=== PATIENT | male | born 1950 | race Caucasian/White ===

== ENCOUNTER → 2020-01-07 15:51 | Outpatient (BNVA) | payer MEDICARE, MEDICAID, SELFPAY | PROVIDERS: Family Provider Family Medicine; Visit Provider Nurse Practitioner Family | DX: Z12.5 Encounter for screening for malignant neoplasm of prostate (principal); N40.1 Benign prostatic hyperplasia with lower urinary tract symptoms | CPT/HCPCS: 81001; 84153 ==

== ENCOUNTER → 2022-07-24 14:30 | Outpatient (BNVA) | payer MEDICARE, MEDICAID, SELFPAY | PROVIDERS: PCP Family Medicine; Visit Provider Internal Medicine Pulmonary Disease | DX: J44.9 Chronic obstructive pulmonary disease, unspecified (principal); R06.02 Shortness of breath; R05.9 Cough, unspecified; Z87.891 Personal history of nicotine dependence; Z99.81 Dependence on supplemental oxygen | CPT/HCPCS: 99204 ==

== ENCOUNTER → 2022-08-30 15:05 | Outpatient (BNVA) | payer MEDICARE, MEDICAID, SELFPAY | PROVIDERS: PCP Family Medicine; Visit Provider Urology | DX: N40.1 Benign prostatic hyperplasia with lower urinary tract symptoms (principal); R31.0 Gross hematuria | CPT/HCPCS: 99213 ==

== ENCOUNTER 2024-01-06 16:06 | Emergency (ER) | payer MEDICARE, MEDICAID, SELFPAY ==
[2024-01-06 16:11] VITALS: BP 145/90; PULSE 88; RESP 19; TEMP 36.7; O2SAT 96; BMI 15.3
--- NOTE | 2024-01-06 16:23 | ECG_ITS ---
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 Measurements Intervals [place] Rate: 91 P: 84 AL: 140 QRS: 74 QRSD: 92 T: 96 QT: 307 QTc: 379 Interpretive Statements SINUS RHYTHM MINIMAL ST DEPRESSION [0.025+ mV ST DEPRESSION] Compared to ECG 05/09/2017 13:06:05 ST (T wave) deviation now present Electronically Signed On 01-07-2024 9:02:02 CDT by Chris Holman M.D. [email or web address]
--- NOTE | 2024-01-06 16:23 | CTR_ITS ---
PROCEDURE INFORMATION: Exam: CTA Abdominal Aorta and Bilateral Lower Extremities (Run-off) With Contrast Exam date and time: 01/06/2024 5:44 PM Age: 73 years old Clinical indication: Abnormal findings; Abnormal diagnostic imaging exam; Abnormality: US shows anuerysm TECHNIQUE: Imaging protocol: Computed tomographic angiography of the of the abdominal aorta, pelvis and bilateral lower extremities with contrast. 3D rendering (Not supervised by radiologist): MIP and/or 3D reconstructed images were created by the technologist. Radiation optimization: All CT scans at this facility use at least one of these dose optimization techniques: automated exposure control; mA and/or kV adjustment per patient size (includes targeted exams where dose is matched to clinical indication); or iterative reconstruction. Contrast material: OMNI 350; Contrast volume: 100 ml; Contrast route: INTRAVENOUS (IV); COMPARISON: US ROR abd aorta aneury scrn 01/06/2024 2:57 PM RADIATION DOSE METRICS: Total DLP (mGy-cm): 633.7 FINDINGS: Aorta: There is a 53.1 mm fusiform infrarenal abdominal aortic aneurysm which is approximately 9 cm long. There is an extensive amount of thrombus causing approximately 45% narrowing of the lumen. Celiac trunk and mesenteric arteries: Origin of the celiac, SMA and DEMARIO are patent. Renal arteries: Hemodynamic stenosis at the origin of the right renal artery. Right iliac arteries: The right common iliac artery measures 17.5 mm which is ectatic. Right femoral/popliteal arteries: The right femoropopliteal arteries demonstrate ectasia of the proximal right common femoral artery. Popliteal artery is patent. Right infrapopliteal arteries: There is three-vessel runoff to the foot. 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 Left femoral/popliteal arteries: Diseased but patent left femoropopliteal arteries. Left infrapopliteal arteries: There is two-vessel runoff via the anterior tibial and peroneal arteries. Other arteries: there is atherosclerotic disease. Lungs: Emphysematous changes are noted in the lung bases. Liver: The liver is unremarkable. Gallbladder and biliary ducts: No intrahepatic or extrahepatic biliary ductal dilatation. The gallbladder is unremarkable with no radioopaque stone. Pancreas: The pancreas is unremarkable. Spleen: There are microcysts it within the spleen. Calcified granuloma within the spleen. Adrenal glands: Adrenal glands are unremarkable. Kidneys and ureters: No hydronephrosis or nephrolithiasis. Bilateral simple renal cysts are present, as well as other subcentimeter hypodensities which are too small to characterize. Stomach and bowel: The stomach is not distended. Small and large bowel are normal in caliber without evidence of obstruction. Appendix: The appendix is not visualized. Urinary bladder: There are multiple bladder diverticula, the largest is in the left posterior bladder measuring 7 cm in transverse diameter and contains bladder stones. Recommend clinical correlation. Findings indicates bladder outlet obstruction. Reproductive: Visualized portions of the male reproductive tract are unremarkable, though routine CT is limited in this regard. The prostate is enlarged and indenting the base of the bladder. Intraperitoneal space: No free intraperitoneal air. No fluid collection. Lymph nodes: No pathologically-enlarged lymph nodes (by short axis size criteria). Bones/joints: No acute osseous abnormality. Soft tissues: Unremarkable. CT/CT angio abd aorta runof [id number] IMPRESSION: 1. 5.3 cm fusiform infrarenal abdominal aortic aneurysm with extensive amount of thrombus causing approximately 45% narrowing of the lumen. 2. 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 3. Ectatic right common iliac artery. 4. On the right, patent outflow vessels with three-vessel runoff. 5. On the left, patent outflow vessels with two-vessel runoff via the anterior tibial and peroneal arteries. 6. Multiple bladder diverticula, the largest measures 7 cm in transverse diameter and contains bladder stones, findings indicate bladder outlet obstruction marker secondary to the enlarged prostate.
--- NOTE | 2024-01-06 16:41 | ED_ITS ---
Documented by User: Marcel Brand DO 01/06/24 18:28 HPI - Abdominal Pain 2 General: Chief Complaint: Abdominal Pain Stated Complaint: Dr. marshall sent over for masoud. Cat scan--stomach Time Seen by Provider: 01/06/24 16:23 Source: patient Mode of arrival: ambulatory History of Present Illness: 73-year-old male with severe COPD O2 dep endent at 4 L/min presents emergency room at the direction of his primary care doctor. Patient has been having chronic abdominal pain but over the last month its gotten worse. He is notices significant change. He is not had any fever sweats or chills no diarrhea. He was seen today at Dr. Jacobo's office they did a ultrasound and it showed a dilated aneurysm. Radiology report in the chart shows a saccular aneurysm of the distal aorta it is 8.9 cm in length and dilated to 6 x 5.7 there is thrombus in the banda of the aneurysm luminal diameter is 3.3 x 3.4. Patient has abdominal tenderness particularly on the left side. Left common iliac artery measures 1.7 cm while the right is 1.4. He does not have any pain radiating to the groin or in the legs. MD elicited complaint: abdominal pain Onset (ago): month(s) (1) Pain Consistency: intermittent Location: Periumbilical Severity: moderate Quality: sharp Radiation: none Exacerbating factors: nothing Relieving factors: nothing Associated Symptoms: Denies anorexia, belching, bloating, change in bowel habits, change in stool character, chills, coffee ground emesis, constipation, GI cramping, diarrhea, dyspepsia, dysuria, excessive flatus, fever(s), heartburn, hematochezia, hematuria, hematemesis, fecal incontinence, loose stools, melena, nausea, poor appetite, syncope and vomiting Review of Systems 2 Const: Reports: fatigue and malaise; Denies: fever(s) or chills Card: Denies: chest pain or syncope Resp: Denies: dyspnea GI: Reports: abdominal pain; Denies: nausea, vomiting, hematemesis, coffee ground emesis, heartburn, diarrhea, constipation, bloating, GI cramping, belching, excessive flatus, fecal incontinence, change in bowel habits, change in stool character, hematochezia or melena : Denies: dysuria, urinary frequency, urinary urgency or hematuria Musc: Denies: neck pain or back pain Skin/Breast: Denies: rash PFSH ED 2 PFSH: Medical History (Updated 01/06/24 @ 20:38 by Rosana Collins MD) BPH loc w urin obs/LUTS Surgical History History of surgery on upper extremity multiple fractures H/O hand surgery fractures H/O radical excision of skin lesion left side of abdomen H/O cystoscopy crushed stones Family History Father , at age 71 Aneurysm Mother No problems noted. Social History Smoking and tobacco/nicotine status: former use of tobacco/nicotine Quit status (tobacco/nicotine): has quit using Year quit tobacco: 2021 Former quit date comment: 2ppd x 60 years, started age 12 Alcohol intake: current Alcohol intake frequency: holidays/special occasions only Marital status: / Current occupational status: retired Physical Exam 2 Const: GENERAL APPEARANCE: cooperative and comfortable NUTRITIONAL APPEARANCE: cachectic ORIENTATION/CONSCIOUSNESS: Yes awake, Yes oriented to person, Yes oriented to place and Yes oriented to time HENMT: COMMON NORMALS: normocephalic, atraumatic and hearing grossly normal bilaterally HEAD & SCALP: normocephalic and atraumatic Resp: COMMON NORMALS: normal respiratory effort, No retractions, No use of accessory muscles and clear to auscultation bilaterally AUSCULTATION: clear to auscultation bilaterally Cardio: COMMON NORMALS: regular rate, regular rhythm and No murmurs present (Cardio) RATE: regular rate RHYTHM: regular rhythm GI: COMMON NORMALS: No hepatosplenomegaly present AUSCULTATION: Yes normoactive bowel sounds PALPATION: Yes Tenderness to palpation present (GI) (Abdomen and left periumbilical area), No Guarding due to palpation present (GI) and Yes No hepatosplenomegaly present OTHER: Aorta feels enlarged easily palpable because of patient's cachexia is Extremity: COMMON NORMALS: normal to inspection, capillary refill normal, no clubbing, cyanosis or edema, no calf tenderness and no pedal edema OTHER: Femoral pulses equal bilaterally Neuro: SENSORIUM/ORIENTATION: Yes oriented to person, Yes oriented to place and Yes oriented to time Skin: COMMON NORMALS: no rashes or lesions noted GENERAL SKIN EXAM: no rashes or lesions noted Course 2 Vital Signs: Vital signs: Vital Signs Temperature 98.1 F 01/06/24 16:11 Pulse Rate 80 01/06/24 20:21 Respiratory Rate 18 01/06/24 20:21 Blood Pressure 137/84 01/06/24 20:21 Pulse Oximetry 100 01/06/24 20:21 Oxygen Delivery Me thod Oxymask 01/06/24 20:21 Oxygen Flow Rate 4 01/06/24 20:21 MDM - Abdominal Pain Medical Decision Making Care signed out to Dr. Collins at change of shift. See final notes for diagnosis and disposition. Lab Data 01/06/24 16:50 01/06/24 16:50 Labs/Radiology: Radiology Impressions Aorta w/Runoff CTA 01/06/24 16:23 IMPRESSION: 1. 5.3 cm fusiform infrarenal abdominal aortic aneurysm with extensive amount of thrombus causing approximately 45% narrowing of the lumen. 2. 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 3. Ectatic right common iliac artery. 4. On the right, patent outflow vessels with three-vessel runoff. 5. On the left, patent outflow vessels with two-vessel runoff via the anterior tibial and peroneal arteries. 6. Multiple bladder diverticula, the largest measures 7 cm in transverse diameter and contains bladder stones, findings indicate bladder outlet obstruction marker secondary to the enlarged prostate. ADDENDUM: 01/06/242014 THIS REPORT CONTAINS FINDINGS THAT MAY BE CRITICAL TO PATIENT CARE. The findings were verbally communicated via telephone conference with Dr. Collins at 8:12 PM CDT on 01/06/2024. The findings were acknowledged and understood. Laboratory Results WBC 10.02 10^3/uL (3.29-11.43) 01/06/24 16:50 RBC 4.90 10^6/uL (3.85-5.65) 01/06/24 16:50 Hgb 14.90 g/dL (11.27-16.99) 01/06/24 16:50 Hct 46.1 % (37-53) 01/06/24 16:50 MCV 94.1 fl (82-101) 01/06/24 16:50 MCH 30.4 pg (27-33) 01/06/24 16:50 MCHC 32.3 g/dL (30-55) 01/06/24 16:50 RDW 12.7 % (12.1-15.1) 01/06/24 16:50 Plt Count 232 10^3/cmm (157-399) 01/06/24 16:50 MPV 9.2 fL (7.4-10.4) 01/06/24 16:50 Neut % (Auto) 80.3 % 01/06/24 16:50 Lymph % (Auto) 12.8 % 01/06/24 16:50 [place] % (Auto) 4.6 % 01/06/24 16:50 Eos % (Auto) 1.5 % 01/06/24 16:50 Baso % (Auto) 0.5 % 01/06/24 16:50 Neut # (Auto) 8.05 10^3/uL (1.8-7.7) H 01/06/24 16:50 Lymph # (Auto) 1.3 10^3/uL (0.8-4.8) 01/06/24 16:50 [place] # (Auto) 0.5 10^3/uL (0.2-0.9) 01/06/24 16:50 Eos # (Auto) 0.2 10^3/uL (0.0-0.8) 01/06/24 16:50 Baso # (Auto) 0.1 10^3/uL (0.0-0.1) 01/06/24 16:50 Nucleated RBC % (auto) 0 % 01/06/24 16:50 Nucleated RBCs # 0.0 /100WBC 01/06/24 16:50 Sodium 143 mmol/L (136-145) 01/06/24 16:50 Potassium 4.2 mmol/L (3.5-5.1) 01/06/24 16:50 Chloride 102 mmol/L (98-107) 01/06/24 16:50 Carbon Dioxide 34 mmol/L (22-29) H 01/06/24 16:50 Anion Gap 11.2 (5-19) 01/06/24 16:50 BUN 15 mg/dL (8-23) 01/06/24 16:50 Creatinine 0.5 mg/dL (0.7-1.2) L 01/06/24 16:50 GFR Calculation Not Reportable 01/06/24 16:50 Glucose 83 mg/dL (65-115) 01/06/24 16:50 Calculated Osmolality 296 mOsm/kg (285-295) H 01/06/24 16:50 Calcium 9.4 mg/dL (8.5-10.5) 01/06/24 16:50 Total Bilirubin 0.6 mg/dL (0.15-1.2) 01/06/24 16:50 AST 15 U/L (0-40) 01/06/24 16:50 ALT 10 U/L (0-41) 01/06/24 16:50 Alkaline Phosphatase 114 U/L (40-130) 01/06/24 16:50 Total Protein 7.1 g/dL (6.6-8.7) 01/06/24 16:50 Albumin 4.1 g/dL (3.5-5.2) 01/06/24 16:50 Globulin 3.0 g/dL (1.3-4.6) 01/06/24 16:50 Urine Color Yellow (Yellow) 01/06/24 18:11 Urine Appearance Cloudy (CLEAR) A 01/06/24 18:11 Urine pH 8 (5-7) H 01/06/24 18:11 Ur Specific [place] 1.010 (1.005-1.030) 01/06/24 18:11 Urine Protein 1+ (Negative) H 01/06/24 18:11 Urine Glucose (UA) Norm (Normal) 01/06/24 18:11 Urine Ketones 1+ (Negative) H 01/06/24 18:11 Urine Blood 3+ (Negative) H 01/06/24 18:11 Urine Nitrate Negative (Negative) 01/06/24 18:11 Urine Bilirubin Neg (Negative) 01/06/24 18:11 Urine Urobilinogen Norm mg/dL (Negative) 01/06/24 18:11 Ur Leukocyte Esterase 2+ (Negative) H 01/06/24 18:11 Urine RBC 5-10 /hpf (0-2) H 01/06/24 18:11 Urine WBC Too numerous to cnt /hpf (0-5) H 01/06/24 18:11 Ur Squamous Epith Cells Rare /hpf (0-5) 01/06/24 18:11 Amorphous Sediment Not Reportable 01/06/24 18:11 Urine Bacteria 4+ /hpf (NONE) H 01/06/24 18:11 XR interpretation done by ED provider, pending radiology final review Discharge Plan Discharge Patient Disposition: Home Clinical Impression: Bladder outlet obstruction, Acute on chronic urinary retention, Bladder diverticulum, Aneurysm of left common iliac artery, Aneurysm of infrarenal abdominal aorta Urinary tract infection Qualifiers: Urinary tract infection type: acute cystitis Hematuria presence: without hematuria Qualified Code(s): N30.00 - Acute cystitis without hematuria Condition: Stable Prescriptions: New cefdinir 300 mg capsule 300 mg PO BID 10 Days Qty: 20 0RF No Action budesonide-formoterol [Symbicort] 160-4.5 mcg/actuation HFA aerosol inhaler 2 puff INHALATION BID albuterol 90 mcg/actuation aerosol INHALATION albuterol sulfate 0.63 mg/3 mL solution for nebulization 0.63 mg INHALATION QID PRN Incruse Ellipta 62.5 mcg/actuation blister with device 1 inh inhalation DAILY roflumilast [Daliresp] 500 mcg tablet 500 mcg PO DAILY finasteride 5 mg tablet 5 mg PO QDAY Qty: 90 3RF tamsulosin 0.4 mg capsule 0.4 mg PO BID Qty: 180 3RF Discharge Orders: Discharge ED (Routine); Ordered 01/06/24 Ordered By: Rosana Collins Referrals: Pavel Jacobo MD [Primary Care Provider] - Discharge Diet: Usual diet Discharge Activity: Increase activity as tolerated Patient Instructions: Christie Catheter Placement and Care (ED), How to Change a Catheter Drainage Bag (DC) Activity Restrictions/Additional Instructions: Please follow-up with Dr. Lew and Dr. Martinez at his clinic at [facility] in [place]. [address] [place] [address] , [address]. [place] [address]. This is in the ground-floor of the [email or web address] building. Phone number is [phone]. Do not forget to bring the CD that contains your CT scan. Thank you for choosing [facility] for your healthcare needs today. Please realize this is an emergency room and that we are providing you with a medical screening exam and this may not be complete and all inclusive of all the testing and or work up that you may need to determine your ailment or severity of your illness. You have been screened and evaluated and felt safe for discharge. Health conditions do change or evolve sometimes and as such it is important that you follow up with your Primary Doctor to be re checked, 3-5 days is a general good time frame for follow up. You are always welcome to return to the ED for re assessment if your symptoms are worsening or you have new concerns Coding Level of Care Code ED Home Paraprofessional for Chg Fwd Documented by User: Rosana Collins MD 01/06/24 21:07 HPI - Abdominal Pain 2 General: Chief Complaint: Abdominal Pain Stated Complaint: office sent over for masoud. Cat scan--stomach Time Seen by Provider: 01/06/24 16:23 [facility] ED 2 [facility]: Medical History (Updated 01/06/24 @ 20:38 by Rosana Collins MD) BPH loc w urin obs/LUTS Surgical History History of surgery on upper extremity multiple fractures H/O hand surgery fractures H/O radical excision of skin lesion left side of abdomen H/O cystoscopy crushed stones Family History Father , at age 71 Aneurysm Mother No problems noted. Social History Smoking and tobacco/nicotine status: former use of tobacco/nicotine Quit status (tobacco/nicotine): has quit using Year quit tobacco: 2021 Former quit date comment: 2ppd x 60 years, started age 12 Alcohol intake: current Alcohol intake frequency: holidays/special occasions only Marital status: / Current occupational status: retired Course 2 Vital Signs: Vital signs: Vital Signs Temperature 98.1 F 01/06/24 16:11 Pulse Rate 80 01/06/24 20:21 Respiratory Rate 18 01/06/24 20:21 Blood Pressure 137/84 01/06/24 20:21 Pulse Oximetry 100 01/06/24 20:21 Oxygen Delivery Or thod Oxymask 01/06/24 20:21 Oxygen Flow Rate 4 01/06/24 20:21 MDM - Abdominal Pain Medical Decision Making Care signed out to Dr. Collins at change of shift. See final notes for diagnosis and disposition. Patient care transitioned to hi at shift change. CT of the abdomen and pelvis with contrast: Afro. 1. 5.3 cm fusiform infrarenal abdominal aortic aneurysm with extensive amount of thrombus causing approximately 45% narrowing of the lumen. 2. 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 3. Ectatic right common iliac artery. 4. On the right, patent outflow vessels with three-vessel runoff. 5. On the left, patent outflow vessels with two-vessel runoff via the anterior tibial and peroneal arteries. 6. Multiple bladder diverticula, the largest measures 7 cm in transverse diameter and contains bladder stones, findings indicate bladder outlet obstruction marker secondary to the enlarged prostate. Lab review. Patient has mild leukocytosis with white count of 10. Hemoglobin is normal at 14.9. BUN and creatinine are stable at 15 and 0.5. CO2 is elevated at 34 secondary to chronic hypercapnic respiratory issues. Urinalysis does appear infected. Consultation: I spoke with Dr. Jose Martinez and discussed the findings of the CT scan. He recommends follow-up in clinic tomorrow. He says he will see the patient midmorning. Or actually his partner Dr. Lew will Assessment and plan: Common iliac artery aneurysm Abdominal aortic aneurysm Bladder diverticula Chronic bladder outlet obstruction Urinary tract infection Urinary retention -Christie catheter placed around 1000 cc of urine was removed. ? Rocephin for urinary tract infection ? Discussed findings with radiologist on-call and they recommend evaluation by vascular surgery with primary concern being for the left common iliac artery aneurysm. They expressed concern that is needed done emergently and not as an outpatient routinely. -I discussed the findings with Dr. Jose Martinez with [facility]. He is a vascular surgeon. His partner will see the patient in clinic tomorrow. He does not feel that he needs shipped emergently to another hospital. Then this can be done as an outpatient tomorrow. - Discussed findings and plan with patient. Answered any questions. - All laboratory values were reviewed and interpreted personally by myself, the ER physician - All imaging was reviewed and interpreted personally by myself, the ER physician. - Evaluation and treatment of this problem were appropriate in the emergency setting Lab Data 01/06/24 16:50 01/06/24 16:50 Labs/Radiology: Radiology Impressions Aorta w/Runoff CTA 01/06/24 16:23 IMPRESSION: 1. 5.3 cm fusiform infrarenal abdominal aortic aneurysm with extensive amount of thrombus causing approximately 45% narrowing of the lumen. 2. 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 3. Ectatic right common iliac artery. 4. On the right, patent outflow vessels with three-vessel runoff. 5. On the left, patent outflow vessels with two-vessel runoff via the anterior tibial and peroneal arteries. 6. Multiple bladder diverticula, the largest measures 7 cm in transverse diameter and contains bladder stones, findings indicate bladder outlet obstruction marker secondary to the enlarged prostate. ADDENDUM: 01/06/242014 THIS REPORT CONTAINS FINDINGS THAT MAY BE CRITICAL TO PATIENT CARE. The findings were verbally communicated via telephone conference with Dr. Collins at 8:12 PM CDT on 01/06/2024. The findings were acknowledged and understood. Laboratory Results WBC 10.02 10^3/uL (3.29-11.43) 01/06/24 16:50 RBC 4.90 10^6/uL (3.85-5.65) 01/06/24 16:50 Hgb 14.90 g/dL (11.27-16.99) 01/06/24 16:50 Hct 46.1 % (37-53) 01/06/24 16:50 MCV 94.1 fl (82-101) 01/06/24 16:50 MCH 30.4 pg (27-33) 01/06/24 16:50 MCHC 32.3 g/dL (30-55) 01/06/24 16:50 RDW 12.7 % (12.1-15.1) 01/06/24 16:50 Plt Count 232 10^3/cmm (157-399) 01/06/24 16:50 MPV 9.2 fL (7.4-10.4) 01/06/24 16:50 Neut % (Auto) 80.3 % 01/06/24 16:50 Lymph % (Auto) 12.8 % 01/06/24 16:50 [place] % (Auto) 4.6 % 01/06/24 16:50 Eos % (Auto) 1.5 % 01/06/24 16:50 Baso % (Auto) 0.5 % 01/06/24 16:50 Neut # (Auto) 8.05 10^3/uL (1.8-7.7) H 01/06/24 16:50 Lymph # (Auto) 1.3 10^3/uL (0.8-4.8) 01/06/24 16:50 [place] # (Auto) 0.5 10^3/uL (0.2-0.9) 01/06/24 16:50 Eos # (Auto) 0.2 10^3/uL (0.0-0.8) 01/06/24 16:50 Baso # (Auto) 0.1 10^3/uL (0.0-0.1) 01/06/24 16:50 Nucleated RBC % (auto) 0 % 01/06/24 16:50 Nucleated RBCs # 0.0 /100WBC 01/06/24 16:50 Sodium 143 mmol/L (136-145) 01/06/24 16:50 Potassium 4.2 mmol/L (3.5-5.1) 01/06/24 16:50 Chloride 102 mmol/L (98-107) 01/06/24 16:50 Carbon Dioxide 34 mmol/L (22-29) H 01/06/24 16:50 Anion Gap 11.2 (5-19) 01/06/24 16:50 BUN 15 mg/dL (8-23) 01/06/24 16:50 Creatinine 0.5 mg/dL (0.7-1.2) L 01/06/24 16:50 GFR Calculation Not Reportable 01/06/24 16:50 Glucose 83 mg/dL (65-115) 01/06/24 16:50 Calculated Osmolality 296 mOsm/kg (285-295) H 01/06/24 16:50 Calcium 9.4 mg/dL (8.5-10.5) 01/06/24 16:50 Total Bilirubin 0.6 mg/dL (0.15-1.2) 01/06/24 16:50 AST 15 U/L (0-40) 01/06/24 16:50 ALT 10 U/L (0-41) 01/06/24 16:50 Alkaline Phosphatase 114 U/L (40-130) 01/06/24 16:50 Total Protein 7.1 g/dL (6.6-8.7) 01/06/24 16:50 Albumin 4.1 g/dL (3.5-5.2) 01/06/24 16:50 Globulin 3.0 g/dL (1.3-4.6) 01/06/24 16:50 Urine Color Yellow (Yellow) 01/06/24 18:11 Urine Appearance Cloudy (CLEAR) A 01/06/24 18:11 Urine pH 8 (5-7) H 01/06/24 18:11 Ur Specific [place] 1.010 (1.005-1.030) 01/06/24 18:11 Urine Protein 1+ (Negative) H 01/06/24 18:11 Urine Glucose (UA) Norm (Normal) 01/06/24 18:11 Urine Ketones 1+ (Negative) H 01/06/24 18:11 Urine Blood 3+ (Negative) H 01/06/24 18:11 Urine Nitrate Negative (Negative) 01/06/24 18:11 Urine Bilirubin Neg (Negative) 01/06/24 18:11 Urine Urobilinogen Norm mg/dL (Negative) 01/06/24 18:11 Ur Leukocyte Esterase 2+ (Negative) H 01/06/24 18:11 Urine RBC 5-10 /hpf (0-2) H 01/06/24 18:11 Urine WBC Too numerous to cnt /hpf (0-5) H 01/06/24 18:11 Ur Squamous Epith Cells Rare /hpf (0-5) 01/06/24 18:11 Amorphous Sediment Not Reportable 01/06/24 18:11 Urine Bacteria 4+ /hpf (NONE) H 01/06/24 18:11 Discharge Plan Discharge Patient Disposition: Home Clinical Impression: Bladder outlet obstruction, Acute on chronic urinary retention, Bladder diverticulum, Aneurysm of left common iliac artery, Aneurysm of infrarenal abdominal aorta Urinary tract infection Qualifiers: Urinary tract infection type: acute cystitis Hematuria presence: without hematuria Qualified Code(s): N30.00 - Acute cystitis without hematuria Condition: Stable Prescriptions: New cefdinir 300 mg capsule 300 mg PO BID 10 Days Qty: 20 0RF No Action budesonide-formoterol [Symbicort] 160-4.5 mcg/actuation HFA aerosol inhaler 2 puff INHALATION BID albuterol 90 mcg/actuation aerosol INHALATION albuterol sulfate 0.63 mg/3 mL solution for nebulization 0.63 mg INHALATION QID PRN Incruse Ellipta 62.5 mcg/actuation blister with device 1 inh inhalation DAILY roflumilast [Daliresp] 500 mcg tablet 500 mcg PO DAILY finasteride 5 mg tablet 5 mg PO QDAY Qty: 90 3RF tamsulosin 0.4 mg capsule 0.4 mg PO BID Qty: 180 3RF Discharge Orders: Discharge ED (Routine); Ordered 01/06/24 Ordered By: Rosana Collins Referrals: Pavel Jacobo MD [Primary Care Provider] - Discharge Diet: Usual diet Discharge Activity: Increase activity as tolerated Patient Instructions: Christie Catheter Placement and Care (ED), How to Change a Catheter Drainage Bag (DC) Activity Restrictions/Additional Instructions: Please follow-up with Dr. Lew and Dr. Martinez at his clinic at [facility] in [place]. [address] [place] [address] , [address]. [place] [address]. This is in the ground-floor of the [email or web address] building. Phone number is [phone]. Do not forget to bring the CD that contains your CT scan. Thank you for choosing [facility] for your healthcare needs today. Please realize this is an emergency room and that we are providing you with a medical screening exam and this may not be complete and all inclusive of all the testing and or work up that you may need to determine your ailment or severity of your illness. You have been screened and evaluated and felt safe for discharge. Health conditions do change or evolve sometimes and as such it is important that you follow up with your Primary Doctor to be re checked, 3-5 days is a general good time frame for follow up. You are always welcome to return to the ED for re assessment if your symptoms are worsening or you have new concerns Coding Level of Care Code ED Home Paraprofessional for Giovanna Banks
[2024-01-06 17:00] VITALS: BP 145/90; PULSE 75; RESP 17; O2SAT 100
[2024-01-06 17:10] LABS: Basophils # 0.1 10^3/uL (0.0-0.1); Basophils % 0.5 %; Eosinophils # 0.2 10^3/uL (0.0-0.8); Eosinophils % 1.5 %; Hematocrit 46.1 % (37-53); Lymphocytes # 1.3 10^3/uL (0.8-4.8); Lymphocytes % 12.8 %; Mean Corpuscular HGB Conc 32.3 g/dL (30-55); Mean Corpuscular Hemoglobin 30.4 pg (27-33); Mean Corpuscular Volume 94.1 fl (82-101); Mean Platelet Volume 9.2 fL (7.4-10.4); Monocytes # 0.5 10^3/uL (0.2-0.9); Monocytes % 4.6 %; Neutrophils # 8.05 10^3/uL (1.8-7.7); Neutrophils % 80.3 %; Nucleated Red Blood Cells % 0 %; Platelet Count 232 10^3/cmm (157-399); Red Cell Distribution Width 12.7 % (12.1-15.1); White Blood Count 10.02 10^3/uL (3.29-11.43)
[2024-01-06 17:28] LABS: Alanine Aminotransferase 10 U/L (0-41); Albumin Level 4.1 g/dL (3.5-5.2); Alkaline Phosphatase 114 U/L (40-130); Anion Gap 11.2 (5-19); Aspartate Amino Transferase 15 U/L (0-40); Blood Urea Nitrogen 15 mg/dL (8-23); Calcium 9.4 mg/dL (8.5-10.5); Carbon Dioxide 34 mmol/L (22-29); Chloride 102 mmol/L (98-107); Creatinine Clr Calc Pharmacy 53.2498; Glucose 83 mg/dL (65-115); Osmolality Calculated 296 mOsm/kg (285-295); Potassium 4.2 mmol/L (3.5-5.1); Sodium 143 mmol/L (136-145); Total Bilirubin 0.6 mg/dL (0.15-1.2); Total Protein 7.1 g/dL (6.6-8.7)
[2024-01-06 17:30] VITALS: BP 145/90; PULSE 81; RESP 23; O2SAT 100
[2024-01-06 17:55] VITALS: BP 145/90
[2024-01-06] MEDS: iohexol 350 mg/mL 500 mL Btl (per mL) IV (18:01)
[2024-01-06 18:44] LABS: Urine Color Yellow (Yellow)
[2024-01-06 18:45] LABS: Add Urine Microscopic? YES; Bilirubin Urine Neg (Negative); Blood Urine 3+ (Negative); Glucose Urine UA Norm (Normal); Ketones Urine 1+ (Negative); Leukocyte Esterase Urine 2+ (Negative); Nitrate Urine Negative (Negative); Protein Urine 1+ (Negative); Urine Appearance Cloudy (CLEAR); Urobilinogen Urine Norm (Negative); pH Urine 8 (5-7)
[2024-01-06 18:57] LABS: Add Urine Culture? Yes; Bacteria Urine 4+ /hpf; Squamous Epithelial Cell Urine RARE /hpf (0-5); WBC Urine TOO NUMEROUS TO CNT /hpf (0-5)
[2024-01-06] MEDS: cefTRIAXone 1,000 MG in sodium chloride 0.9% (plus) 50 ML 100 MG IV (19:15)
[2024-01-06 20:21] VITALS: BP 137/84; PULSE 80; RESP 18; O2SAT 100
[2024-01-06 21:13] VITALS: BP 137/84; PULSE 80; RESP 18; TEMP 36.7; O2SAT 100
[2024-01-06 21:44] LABS: PSA Screen - Urology 2.71 ng/mL (0-4)
== END 2024-01-06 21:15 | disposition home or self-care (01) ==
PROVIDERS: Family Medicine; Emergency Provider Emergency Medicine; PCP Family Medicine
DX: N30.00 Acute cystitis without hematuria (principal); N32.0 Bladder-neck obstruction; R33.9 Retention of urine, unspecified; N32.3 Diverticulum of bladder; I72.3 Aneurysm of iliac artery; I71.43 Infrarenal abdominal aortic aneurysm, without rupture; Z87.891 Personal history of nicotine dependence; N40.0 Benign prostatic hyperplasia without lower urinary tract symptoms
CPT/HCPCS: 36415; 51702; 75635; 80053; 81001; 85025; 87077; 87086; 87186; 93005; 99285; G0103; J0696; Q9967